=== PATIENT | female | born 1990 | race African-American/Black ===

== ENCOUNTER 2017-03-14 04:52 | Inpatient (IN) ==
[2017-03-14] MEDS ORDERED: ONDANSETRON 4 MG/2 ML VIAL IV PRN ×2 (05:39→09:46)
[2017-03-14] MEDS ORDERED: BUTORPHANOL 1 MG/ML VIAL IV PRN (05:39)
[2017-03-14] MEDS: LACTATED RINGERS 1,000 ML IV SCH ×2 (05:50→09:25)
[2017-03-14] MEDS ORDERED: OXYTOCIN/LR 20 UNIT/1,000 ML BAG IV SCH (06:00)
[2017-03-14 06:24] LABS: Basophils % 0.3 % (0.0-0.8); Eosinophils # 0.1 10*3/uL (0.0-0.87); Eosinophils % 1.6 % (0.00-10.9); Hematocrit 33.8 VOL% (35.7-47.0); Hemoglobin 10.7 GM/DL (12.0-16.0); Immature Granulocytes % 0.5 %; Immature Granulocytes Absolute 0.04 #; Lymphocytes # 3.6 10*3/uL (1.4-4.0); Lymphocytes % 49.4 % (21.3-54.2); Mean Corpuscular HGB Conc 31.7 GM/DL (32-36); Mean Corpuscular Hemoglobin 23 PG (27-34); Mean Platelet Volume 12.8 FL (9.6-12.0); Monocytes # 0.7 10*3/uL (0.11-0.8); Monocytes % 9.2 % (1.7-12.7); Neutrophils # 2.9 10*3/uL (1.4-7.4); Platelet Count 150 T/CUMM (130-400); Red Blood Count 4.57 MC/CUMM (3.8-5.5); Red Cell Distribution Width 14.4 % (9.3-17.3); White Blood Count 7.4 T/CUMM (4-12)
[2017-03-14 06:25] LABS: Apearance,Urine CLEAR (Clear); Bacteria,Urine Occasional /HPF (Few); Bilirubin,Urine Negative (Negative); Blood, Urine Negative (Negative); Glucose,Urine (UA) Negative (Negative); Ketones,Urine Negative (Negative); Mucus,Urine Occasional /LPF (Occasional); Nitrite,Urine Negative (Negative); Protein,Urine Negative; RBC,Urine <1 /HPF (0-4); Squamous Epithelial Cell,Urine Occasional /HPF (0-10); Urine Color Yellow (Yellow); Urine Specific Gravity 1.012 (1.001-1.035); WBC,Urine 1 /HPF (0-6)
[2017-03-14 06:56] LABS: Alanine Aminotransferase 12 U/L (13-56); Albumin 2.6 G/DL (3.4-5.0); Alkaline Phosphatase 112 U/L (45-117); Aspartate Amino Transferase 9 U/L (0-37); Bilirubin,Total < 0.39 MG/DL (0.2-1.0); Blood Urea Nitrogen 4 MG/DL (7-18); Calcium 8.3 MG/DL (8.5-10.1); Glucose 71 MG/DL (74-106); Osmolality,Calculated 267.8 MOS/KG (273-304); Potassium 3.5 MMOL/L (3.5-5.1); Sodium 137 MMOL/L (136-145); Total Protein 6.1 G/DL (6.4-8.3)
[2017-03-14] MEDS ORDERED: AMPICILLIN INJ 2,000 MG in SODIUM CHLORIDE 0.9% 100 ML IV SCH (07:00)
[2017-03-14] MEDS ORDERED: BUTORPHANOL 2 MG/ML VIAL IV PRN (08:18)
[2017-03-14] MEDS ORDERED: LIDOCAINE 1% 50 ML VIAL ONE (09:33)
[2017-03-14] MEDS ORDERED: BENZOCAINE 20%/MENTHOL 0.5% SPRAY 56 GM CAN TOP PRN (09:46)
[2017-03-14] MEDS ORDERED: OXYTOCIN/LR 20 UNIT/1,000 ML BAG IV ONE (09:46)
[2017-03-14] MEDS ORDERED: HYDROCORTISONE 2.5% RECTAL CREAM 30 GM TUBE TOP PRN (09:46)
[2017-03-14] MEDS ORDERED: DIPH/TET/ACEL PERT BOOSTER VACCINE 0.5 ML VIAL IM ONE (09:46)
[2017-03-14] MEDS ORDERED: BISACODYL 10 MG SUPP RECTAL PRN (09:46)
[2017-03-14] MEDS ORDERED: WITCH HAZEL PADS 100/JAR TOP PRN (09:46)
[2017-03-14] MEDS ORDERED: MEASLES/MUMPS/RUBELLA VACCINE 0.5 ML VIAL SUBCUT ONE (09:46)
[2017-03-14] MEDS ORDERED: LANOLIN 50% CREAM 0.3 OZ TUBE TOP PRN (09:46)
[2017-03-14] MEDS ORDERED: ACETAMINOPHEN 325 MG TABLET PO PRN (09:46)
[2017-03-14] MEDS ORDERED: RHO(D) IMMUNE GLOBULIN 300 MCG SYRINGE IM ONE (09:46)
[2017-03-14] MEDS: oxyCODONE/ACETAMINOPHEN 5-325 MG TABLET PO PRN ×2 (11:30→17:11)
[2017-03-14] MEDS: IBUPROFEN 800 MG TABLET PO PRN (17:11)
[2017-03-14] MEDS: DOCUSATE SODIUM 100 MG CAPSULE PO SCH (21:36)
[2017-03-15] MEDS: IBUPROFEN 800 MG TABLET PO PRN ×3 (02:18→21:28)
[2017-03-15] MEDS: oxyCODONE/ACETAMINOPHEN 5-325 MG TABLET PO PRN ×2 (02:19→21:28)
[2017-03-15 06:02] LABS: Basophils % 0.3 % (0.0-0.8); Eosinophils # 0.2 10*3/uL (0.0-0.87); Eosinophils % 1.9 % (0.00-10.9); Hematocrit 33.5 VOL% (35.7-47.0); Hemoglobin 10.6 GM/DL (12.0-16.0); Immature Granulocytes % 0.6 %; Immature Granulocytes Absolute 0.05 #; Lymphocytes # 3.7 10*3/uL (1.4-4.0); Lymphocytes % 41.9 % (21.3-54.2); Mean Corpuscular HGB Conc 31.6 GM/DL (32-36); Mean Corpuscular Hemoglobin 23 PG (27-34); Mean Corpuscular Volume 73.5 FL (87-102); Monocytes # 0.8 10*3/uL (0.11-0.8); Monocytes % 8.4 % (1.7-12.7); Neutrophils # 4.2 10*3/uL (1.4-7.4); Neutrophils % 46.9 % (38.7-73.9); Platelet Count 133 T/CUMM (130-400); Red Blood Count 4.56 MC/CUMM (3.8-5.5); Red Cell Distribution Width 14.6 % (9.3-17.3); White Blood Count 8.9 T/CUMM (4-12)
[2017-03-15 07:15] LABS: Acanthocytes Few; Anisocytosis 2+; Hypochromasia 2+; Microcytosis 2+; Ovalocytes 1+; Platelet Estimate Decreased; Target Cells 1+
[2017-03-15] MEDS: DOCUSATE SODIUM 100 MG CAPSULE PO SCH ×2 (09:03→21:28)
[2017-03-15] MEDS: MULTIVITAMIN (PRENATAL) TABLET PO SCH (09:03)
[2017-03-16] MEDS: IBUPROFEN 800 MG TABLET PO PRN (06:30)
[2017-03-16 08:53] VITALS: BP 134/86
[2017-03-16] MEDS ORDERED: INFLUENZA VIRUS VACCINE 0.5 ML SYRINGE IM ONE (08:54)
[2017-03-16] MEDS: MULTIVITAMIN (PRENATAL) TABLET PO SCH (09:32)
[2017-03-16] MEDS: DOCUSATE SODIUM 100 MG CAPSULE PO SCH (09:32)
== END 2017-03-16 14:15 | disposition home or self-care (01) | DRG 560 ==
LOC: N.LDOUT 04:52 → N.LD 05:05 → N.OB 12:53
PROVIDERS: ADMIT Specialist; ATTEND Specialist